=== PATIENT | male | born 1965 | race African-American/Black ===

== ENCOUNTER 2018-10-11 18:37 | Emergency (ER) | payer OTHER, BC ==
[~2018-10-11] VITALS: Ht 180.3 cm; Wt 74.8 kg
[2018-10-11 19:27] VITALS: BP 151/92
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
[2018-10-11] MEDS ORDERED: NAPR500T8 PO (20:49)
[2018-10-11] MEDS ORDERED: CYCL10TA2 PO (20:49)
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
== END 2018-10-11 21:03 | disposition home or self-care (01) ==
LOC: ER 18:37
DX: S13.8XXA Sprain of joints and ligaments of other parts of neck, initial encounter (principal); M54.5 Low back pain; M25.512 Pain in left shoulder; I10 Essential (primary) hypertension; V43.62XA Car passenger injured in collision with other type car in traffic accident, initial encounter; Y93.89 Activity, other specified; Y92.410 Unspecified street and highway as the place of occurrence of the external cause; Y99.8 Other external cause status
CPT/HCPCS: 72125; 72131; 73030; 99284